=== PATIENT | female | born 1955 | race Caucasian/White ===

== ENCOUNTER 2018-12-02 11:50 | Day surgery (SDC) | payer BC ==
[2018-12-02] MEDS ORDERED: LIDOCAINE 2% MDV (20MG/ML) 20ML VIAL IV ONE (11:51)
[2018-12-02] MEDS ORDERED: PROPOFOL 10 MG/ML VIAL IV ONE (11:51)
--- NOTE | 2018-12-03 09:50 | Operative Note ---
DATE OF SURGERY: 12/02/2018 OPERATION: COLONOSCOPY to the cecum. INDICATION: Colorectal cancer screening. Her last examination was 12 years ago. ANESTHESIA: Intravenous sedation was administered by the department of anesthesiology and included Diprivan titrated to effect. PROCEDURE: Following informed consent from this alert individual including a discussion of the risks and benefits of the procedure and an opportunity for the patient to ask questions, the patient was in the left lateral decubitus position. A digital rectal examination was performed. No masses were noted. No abnormalities were detected. Following this, the Olympus [id number] video colonoscope was inserted into the rectum without resistance. The rectal mucosa had a normal appearance with normal folds and distensibility. The colonoscope was advanced up through the bowel to the level of the cecum without much difficulty. Throughout the bowel the mucosa appeared normal, the folds were normal, and the bowel was fairly well distensible. There were a few scattered diverticula noted in the sigmoid region. The cecum was well defined by noting the appendiceal orifice and ileocecal valve. The colon preparation was good. From the base of the cecum, the colonoscope was then slowly withdrawn. Again no abnormalities were detected until the sigmoid colon was reached where scattered diverticula was seen. The rectum was endoscopically normal in antegrade and retroflexed view. The endoscope was straightened and removed. The patient tolerated the procedure well and was returned to the recovery area in stable condition. IMPRESSION: 1. Sigmoid diverticulosis. 2. Otherwise unremarkable colonoscopy to the cecum. RECOMMENDATIONS: The patient was advised to have recheck colonoscopy in 10 years' time or sooner should problems arise. Followup will be with Celso Oro DO. As always, thank you for allowing me to participate in the care of your patient. CC: DO REG Francis
== END 2018-12-02 14:10 | disposition home or self-care (01) ==
LOC: HOP 11:50
PROVIDERS: ATTEND Internal Medicine Gastroenterology
DX: Z12.11 Encounter for screening for malignant neoplasm of colon (principal); K57.30 Diverticulosis of large intestine without perforation or abscess without bleeding
CPT/HCPCS: 00812; G0121

== ENCOUNTER 2019-09-16 09:20 | Day surgery (SDC) | payer BC ==
[~2019-09-16 09:20] MED LIST: ACETAMINOPHEN 1,000 MG/100 ML BTL IVPB ONE
[2019-09-16] MEDS ORDERED: MIDAZOLAM HCL 2MG/2ML VIAL IV ONE (09:21)
[2019-09-16] MEDS ORDERED: SEVOFLURANE 250 ML INH ONE (09:21)
[2019-09-16] MEDS ORDERED: KETOROLAC 30 MG/ML VIAL IVP ONE (09:21)
[2019-09-16] MEDS ORDERED: FENTANYL CITRATE/PF (PACU) 50 MCG/ML VIAL IV ONE (09:21)
[2019-09-16] MEDS ORDERED: LIDOCAINE 2% MDV (20MG/ML) 20ML VIAL IV ONE (09:21)
[2019-09-16] MEDS ORDERED: PROPOFOL 10 MG/ML VIAL IV ONE (09:21)
[2019-09-16] MEDS ORDERED: ONDANSETRON HCL IV 4 MG/2 ML VIAL IVP ONE (09:21)
[2019-09-16] MEDS ORDERED: RINGERS SOLUTION,LACTATED 1,000 ML IV ONE (09:50)
[2019-09-16] MEDS ORDERED: BUPIVACAINE 0.25% W/EPI MPF 30ML VIAL SQ ONE (11:30)
[2019-09-16] MEDS ORDERED: IBUPROFEN 400 MG TABLET PO ONE (12:15)
--- NOTE | 2019-09-17 09:24 | Operative Note ---
DATE OF SURGERY: 09/16/2019 SURGEON: Wang Dias D.O. PREOPERATIVE DIAGNOSIS: 1. TORN MEDIAL AND LATERAL MENISCUS OF THE LEFT KNEE. 2. 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 POSTOPERATIVE DIAGNOSIS: 1. TORN MEDIAL AND LATERAL MENISCUS OF THE LEFT KNEE. 2. 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 OPERATION: 1. ARTHROSCOPIC PARTIAL MEDIAL AND LATERAL MENISCECTOMY LEFT KNEE. 2. ARTHROSCOPIC CHONDROPLASTY MEDIAL FEMORAL CONDYLE, LATERAL FEMORAL CONDYLE AND PATELLA LEFT KNEE. DESCRIPTION: This 64-year-old female was taken to the Operating Room and placed in the supine position on the operating room table. A general anesthetic was administered and the left lower extremity was elevated, it was exsanguinated and the tourniquet was inflated to 300 mmHg. Arthroscopic knee barajas was applied. The left knee was prepped with Hibiclens and draped in the usual sterile fashion. An inferolateral portal was established with a 4 mm arthroscope and initial evaluation of the joint demonstrated normal appearance of the suprapatellar pouch, but the patient did have Grade 3 chondromalacia of the patella, but the trochlea was spared. A loose fragment of articular cartilage of the patella was identified and chondroplasty was performed to stabilize the articular cartilage there. The medial and lateral gutters are examined and found to be normal. The medial compartment was entered and Grade 3 chondromalacia of the medial femoral condyle was present with loose flaps of articular cartilage being identified there as well, this involved the entire weight bearing surface of the medial femoral condyle from the meniscal rest to as far posteriorly as could be seen. The posterior horn of the medial meniscus also demonstrated a degenerative tear with horizontal cleavage components. We resected this unstable fragment of the medial meniscus with the apex being at approximately the 12:00 o'clock position and then we tapered in each direction from about the 10:00 o'clock position to the most lateral edge and leaving a rim of approximately 2-3 mm at the apex of the tear. We then reprobed after resecting unstable fragments and found it to be stable. The intercondylar notch was examined and found to be normal. The lateral compartment was entered and tears of the lateral meniscus were identified. A flap tear of the posterior horn was identified as well as degenerative tearing of the body of the lateral meniscus also identified. Utilizing the basket forceps we resected the unstable fragments of the posterior flap tear to stable rim. This did not enter the popliteal hiatus. The meniscus was stable after re-probing and the wound was copiously irrigated. We performed chondroplasty of the lateral femoral condyle as well because of loose fragment of articular cartilage with Grade 2-3 changes being noted there as well. This was a slightly small lesion than the medial femoral condyle. The instruments were then removed, portals infiltrated with 0.25% Marcaine with epinephrine, sterile dressings applied, tourniquet and knee barajas were released and the patient was taken to the Recovery Room in satisfactory condition. GROSS PATHOLOGY: Chondromalacia of the patella, medial femoral condyle, and the lateral femoral condyle were present as described above. In addition, tears of both the medial and lateral meniscus were identified. JOB NUMBER: [id number] MTDD
== END 2019-09-16 12:35 | disposition home or self-care (01) ==
LOC: SUR 09:20
PROVIDERS: ATTEND Orthopaedic Surgery
DX: S83.282A Other tear of lateral meniscus, current injury, left knee, initial encounter (principal); M22.42 Chondromalacia patellae, left knee; R01.1 Cardiac murmur, unspecified
CPT/HCPCS: J1885; J2405; J7120